=== PATIENT | female | born 1970 | race Caucasian/White ===

== ENCOUNTER 2021-01-11 16:57 | Outpatient (REF) | payer OTHER, SELFPAY ==
--- NOTE | ~2021-01-11 | MR_ITS ---
EXAMINATION: MR head/brain wo con CLINICAL INFORMATION: Reason for Exam Migraine without Aura self-reported right occipital pain with symptoms for 3 months. COMPARISON: None TECHNIQUE: Routine unenhanced MRI of the brain. FINDINGS: A mild number scattered subcortical and periventricular white matter rounded punctate (less than 5 mm) T2 hyperintensities are noted. No intrarenal hemorrhage, tumors or acute infarcts are demonstrated. The ventricles and sulci are normal in size and configuration. Susceptibility weighted images reveal no evidence of acute or chronic hemorrhage within the brain parenchyma. The craniocervical junction cerebellar tonsils are normal in configuration. No suspicious marrow abnormalities. Convex inward configuration of the superior margin of the pituitary is visualized no ectasia of the Meckel's caves is noted. No definitive optic nerve sheath ectasia is demonstrated. The inward configuration of the superior margin the pituitary likely represents normal anatomic variation, a frequently encountered finding. Normal flow-related signal intensity is identified in the major intracranial vessels and dural sinuses. No mastoid effusions. Bilateral maxillary sinus rounded T2 hyperintensities having the appearance of mucosal retention cyst. Sagittal FLAIR images reveal no perivenular lesions associated with the periventricular white matter. MR/MR head/brain wo con IMPRESSION: -Mild number scattered nonspecific supratentorial punctate white matter foci of signal alteration (T2 hyperintensities). In the correct clinical setting, these findings could represent mild white matter chronic small vessel ischemic changes. No findings to specifically suggest demyelinating disease. -Convex inward configuration of the superior margin the pituitary. In the correct clinical setting, this finding could be associated with idiopathic intracranial hypertension. No additional definitive findings are present to more specifically suggest intracranial hypertension. Consequently, this is a borderline finding which may represent frequently encountered normal anatomic variation of the pituitary.
== END 2021-01-11 16:58 | disposition home or self-care (01) ==
LOC: HO.MRI 16:57
PROVIDERS: Visit Provider Psychiatry & Neurology Neurology
DX: G43.009 Migraine without aura, not intractable, without status migrainosus (principal)
CPT/HCPCS: 70551

== ENCOUNTER 2021-01-25 09:31 | Day surgery (SDC) | payer OTHER, SELFPAY ==
[2021-01-24 16:19] VITALS: BMI 34.0
--- NOTE | ~2021-01-25 | FL_ITS ---
EXAMINATION: XR LUMBAR PUNCTURE CLINICAL INFORMATION: Chronic daily headache COMPARISON: MRI of January 11, 2021 TECHNIQUE: Fluoroscopic guided lumbar puncture. FINDINGS: Informed consent was obtained from the patient prior to the procedure. During this process, the procedure and potential alternatives were explained, along with the intended outcome and benefits. The risks of the procedure, as well as the risk of not doing the procedure, were discussed. The patient was given the opportunity to ask questions regarding the procedure and appeared competent to make medical decisions. A signed consent form which documents this discussion was placed in the medical record. Using fluoroscopic guidance and sterile technique a 22-gauge spinal needle was directed into the spinal canal at the L3-L4 level. Opening pressure was 16 cm of water. Total amount of cerebral spinal fluid drained was 7 mL. Patient tolerated procedure without difficulty. FLUOROSCOPY TIME: 1 minute DOSE AREA PRODUCT: 3.835 Gy-cm2 (malik-centimeter squared) FL/FL guided lumbar puncture LP IMPRESSION: L3-L4 lumbar puncture as described.
[2021-01-25 10:08] LABS: MANUAL DIFF FLAG NO
[2021-01-25 10:12] LABS: Basophils Absolute Auto 0.1 X10*3/uL (0.0-0.2); Basophils Percent Auto 0.5 % (0-2); Eosinophils Absolute Auto 0.2 X10*3/uL (0.0-0.4); Eosinophils Percent Auto 1.9 % (0-4); Hematocrit 43.1 % (37.0-47.0); Hemoglobin 14.3 g/dl (12.0-16.0); Imm Gran Abs Auto 0.05 X10*3/uL (0.00-0.03); Imm Gran Pct Auto 0.4 % (0.0-0.4); Lymphocytes Absolute Auto 4.2 X10*3/uL (1.2-4.9); Lymphocytes Percent Auto 32.5 % (20-40); Mean Corpuscular HGB Conc 33.2 g/dl (31.0-35.0); Mean Corpuscular Hemoglobin 30.8 pg (27.0-33.0); Mean Corpuscular Volume 92.7 fL (80.0-98.0); Mean Platelet Volume 12.4 fL (9.4-12.3); Monocytes Absolute Auto 0.9 X10*3/uL (0.1-1.2); Monocytes Percent Auto 6.7 % (2-11); Neutrophils Absolute Auto 7.4 x10*3/uL (2.0-8.3); Platelet Count 179 X10*3/uL (160-400); Red Blood Count 4.65 X10*6/uL (4.20-5.50); Red Cell Distribution Width 13.2 % (11.0-16.0); White Blood Count 12.8 X10*3/uL (4.8-10.8)
[2021-01-25 10:17] LABS: Glucose, Whole Blood 211 mg/dL (60-115)
[2021-01-25 10:26] VITALS: BP 140/81; PULSE 70; RESP 18; TEMP 36.2; O2SAT 96
[2021-01-25 10:26] LABS: Prothrombin Time 11.1 SEC (9.9-13.0)
[2021-01-25 10:29] LABS: Partial Thromboplastin Time 32.2 SEC (24.1-38.0)
[2021-01-25 13:10] VITALS: BP 123/67; PULSE 61; RESP 20; TEMP 36.8; O2SAT 95
[2021-01-25] MEDS: Acetaminophen 325 MG TABLET 650 MG PO (13:26)
[2021-01-25 13:41] VITALS: BP 116/65; PULSE 69; RESP 18; O2SAT 95
[2021-01-25 14:03] LABS: CSF Appearance Clear, Colorless; CSF Tube # 3
[2021-01-25 14:09] LABS: Glucose CSF 101 mg/dL; Total Protein CSF 28.5 mg/dL (15-45)
[2021-01-25 14:10] VITALS: BP 116/57; PULSE 70; RESP 16; O2SAT 94
[2021-01-25 14:40] VITALS: BP 116/63; PULSE 66; RESP 16; O2SAT 96
[2021-01-25 14:49] LABS: Appearance CSF CLEAR; CSF Monos 0 %; CSF Other Cells % 0 %; CSF Tube # 4; Color CSF COLORLESS; Lymphocytes CSF 0 %; Neutrophils CSF 0 %; Red Blood Cell CSF 641 MM*3; White Blood Cell CSF 0 MM*3
[2021-01-25 15:00] VITALS: TEMP 36.7
[2021-01-26 06:52] LABS: Oligoclonal Serum Yes
[2021-01-29 08:42] LABS: Albumin 3.9 g/dL (3.5-5.2); Albumin, CSF 15.7 mg/dL (8.0-42.0); IgG 932 mg/dL (600-1640)
== END 2021-01-25 15:20 | disposition home or self-care (01) ==
PROVIDERS: Radiology Diagnostic Radiology; PCP Internal Medicine; Visit Provider Psychiatry & Neurology Neurology
PROC: 009U3ZZ Drainage of Spinal Canal, Percutaneous Approach (ICD-10-PCS; CPT 62270; principal; 2021-01-25 11:00)
DX: R51.9 Headache, unspecified (principal); G43.909 Migraine, unspecified, not intractable, without status migrainosus; M54.81 Occipital neuralgia; I67.9 Cerebrovascular disease, unspecified; E03.9 Hypothyroidism, unspecified; F41.8 Other specified anxiety disorders; K21.9 Gastro-esophageal reflux disease without esophagitis; E11.9 Type 2 diabetes mellitus without complications; Z79.84 Long term (current) use of oral hypoglycemic drugs; Z79.82 Long term (current) use of aspirin; Z79.899 Other long term (current) drug therapy; Z88.8 Allergy status to other drugs, medicaments and biological substances
CPT/HCPCS: 36415; 62328; 82042; 82945; 82947; 83916; 84157; 85025; 85610; 85730; 87015; 87070; 87205; 89051

== ENCOUNTER 2022-10-30 13:35 | Outpatient (AMB) | payer OTHER, SELFPAY ==
--- NOTE | 2022-10-30 13:39 | MHC.OFFVIS ---
Intake Vital Signs 10/30/22 13:41 Weight 174 lb 2 oz BP 100/70 Blood Pressure Location Rt brachial Position Sitting Pulse 70 Pulse Source Pulse Oximeter Pulse Oximetry (%) 97 Intake Visit Reasons: ADOBE [employer]ER-Migraines -Confirmed Intake Note: Patient presents for migraines, Patient states My eyes get swollen and I'm sensitive to light I get very nauseous and sometimes I throw up. I constantly have a lot of neck pain. Allergies ibuprofen [From Motrin] Allergy (Mild, Verified 10/30/22 13:43) Rash Medication List - Last Reconciled 10/30/22 by ANTHONY Hyde amitriptyline 10 mg PO BEDTIME 30 days aspirin 81 mg PO DAILY atorvastatin 40 mg PO DAILY bbfrrqttyo-ptlnlwsoojnbf-wgaz 50-325-40 mg 1 - 2 tabs PO DAILY PRN docusate sodium (Colace) 100 mg PO BID PRN dulaglutide (Trulicity) 4.5 mg subcut QWEEK empagliflozin (Jardiance) 25 mg PO DAILY fluticasone propionate 50 mcg/actuation 2 sprays intranasal DAILY glipizide 5 mg PO BID isosorbide mononitrate ER 30 mg PO DAILY levothyroxine 200 mcg PO DAILY lisinopril 40 mg PO DAILY loratadine (Claritin) 10 mg PO DAILY PRN lorazepam 0.5 mg PO DAILY PRN magnesium oxide 400 mg PO BEDTIME 30 days mirtazapine 7.5 mg PO BEDTIME omeprazole 40 mg PO DAILY paroxetine HCl 40 mg PO DAILY propranolol 1 tab PO DAILY quetiapine 25 mg PO DAILY riboflavin (vitamin B2) 400 mg PO DAILY 30 days sumatriptan succinate 50 - 100 mg orally at onset of headache, may repeat in 2 hrs PRN; max 2 tabs per day or 4 tabs/week (may take with Advil or Tylenol) 30 days HPI HPI Comments History of Present Illness Details Left-handed 52-yr-old female presents for new pt evaluation of headache disorder. Pt reports she has had migraine for years, but it is more frequent and strong. She also has a right occipital region pain x's 2 years. The pain does not radiate. This is pounding pain. Constant but intensity varies. She has neck pain as well, worse when migraine is more severe. She has had occipital injections which helped x's 1 week but the pain returned. Headache questionnaire: Preceding causes? none Previous work-up? 01/11/2021, MR/MR head/brain wo con IMPRESSION: -Mild number scattered nonspecific supratentorial punctate white matter foci of signal alteration (T2 hyperintensities). In the correct clinical setting, these findings could represent mild white matter chronic small vessel ischemic changes. No findings to specifically suggest demyelinating disease. -Convex inward configuration of the superior margin the pituitary. In the correct clinical setting, this finding could be associated with idiopathic intracranial hypertension. No additional definitive findings are present to more specifically suggest intracranial hypertension. Consequently, this is a borderline finding which may represent frequently encountered normal anatomic variation of the pituitary. LP (01/25/21)- OP 16 cmH2O w/ normal CSF studies Typical migraine headache characteristics: Prodrome symptoms? denies Aura? Sees tiny black spots right before the headache Location, quality, characteristics? Bilateral fronatl/temporal, jaskaran R > L eye, and wraps around the head. Pulsating pain. The right occipital pain worsens when the migraine is present. Pain intensity? 10+/10 Associated symptoms? Photophobia, phonophobia, nausea, more recently vomiting, brain fog, mild dizziness, activity intolerance, Focal weakness, Parethesias, Autonomic s/s? jaskaran R > L eyelid droop/swelling, itching, watery. The head feels hot- new symptom. BP tends to increase- not sure exactly how high. Denies numbness/tingling. Postdrome? Denies Triggers? Nothing Any positional, valsalva, exertional, sexual activity triggers? None Menstrual triggers? None- s/p hysterectomy Time of day? More in the afternoon Duration? 3 severe days f/b 3-4 mod-mild days Frequency? 2 x's per month (approx 14 days per month) How does headache impact your life? She cannot do the things she would like to do- has to lay down in a dark/quiet place. Current acute medication use/interventions: Tylenol or Advil- does not help. Previous acute medication use: Fioricet- can be help. Current preventative medication use: Propranolol- used for HTN- does not help headaches Previous preventative medication use: No other Non-pharmacological interventions: Ice, rest Other history of headache disorder? none History of musculoskeletal disorders or injury? chronic neck and back spasms- but denies injury. Recently had right carpal tunnel repair. History of concussion/head injury? none History of mood disorder? anxiety and depression- her current regimen helps- f/b therapist and psychiatrist History of sleep disorder? sleeping well with her current med regimen. has a h/o ROHITH not on CPAP- did not tolerate PAP. History of respiratory disease? states she has asthma, sinus issues, and snoring- current smoker History of CV disease? HLD and HTN- controlled History of coagulopathy? none History of endocrine or metabolic disease? DM and hypothyroidism History of seizure? none History of GI disorder? Prone to constipation. Vision? mild difficulty w/ reading close, but not far, her last exam was 6 months ago- normal. Family planning? none Family history of migraine or other headache disorder? none [facility] Medical History (Updated 10/30/22 @ 20:01 by ANTHONY Hyde) Anxiety Constipation Depression Diabetes GERD (gastroesophageal reflux disease) HTN (hypertension) Hypothyroid Migraine Sleep apnea with use of continuous positive airway pressure (CPAP) Surgical History History of appendectomy History of carpal tunnel surgery of left wrist History of carpal tunnel surgery of right wrist History of colonoscopy Family History (Updated 10/30/22 @ 13:48 by ERIC Smith) Mother Heart disease HTN (hypertension) Father Heart disease Sister Asthma Daughter Asthma Social History (Updated 10/30/22 @ 13:49 by ERIC Smith) Alcohol intake: never Patient Tobacco Use Status: Current everyday Tobacco user Review of Systems Const Details: See scanned ROS form Physical Exam Vital Signs: Last Vital Signs Pulse 70 10/30/22 13:41 BP 100/70 10/30/22 13:41 Pulse Ox 97 10/30/22 13:41 Const Orientation/consciousness: patient oriented x3 HEENT Other: Mild palpable frontal scalp tenderness. Right occipital region- focal palpable tenderness. Mallampati stage IV Head: Yes normocephalic Resp Effort & Inspection: normal respiratory effort and able to speak in complete sentences Back/Spine/Pelvis Other: Bilateral posterior cervical tightness. Cervical ROM: mildly limited Left Spurling: normal Right Spurling: normal. Neuro General: patient oriented x3 Cranial nerves: Yes CN's II-XII intact bilaterally Cognition (Neuro): normal cognition Gait exam (Neuro): Normal gait present Motor exam (neuro): 5/5 motor strength present throughout Deep tendon reflexes (DTR's): Right triceps reflex intensity grade: 2+, Left triceps reflex intensity grade: 2+, Rt Biceps (C5, C6): 2+, Left biceps reflex intensity grade: 2+, Right brachioradialis reflex intensity grade: 2+, Left brachioradialis reflex intensity grade: 2+, Right patellar reflex intensity grade: 1+ and Left patellar reflex intensity grade: 1+ Coordination: [id number] test normal, tandem gait normal and Romberg test negative Pupils: Normal pupillary reactivity/response: bilateral Psych Appearance: grossly normal Mental Status: mental status grossly normal Speech and movement: Normal speech and movement present Affect: normal affect Attitude: cooperative Thought process: Normal thought process present Assessment & Plan Assessment & Plan (1) Migraine with aura: Code(s): G43.109 - Migraine with aura, not intractable, without status migrainosus (2) Unilateral occipital headache: Comment: right Code(s): R51.9 - Headache, unspecified Plan For overall headache management: Discussed importance of good self-care, including but not limited to maintaining a healthy diet, adequate fluid intake, adequate sleep, and engaging in regular physical activity. For headache triggers: Track headaches. Future considerations- f/u sleep study For acute headache treatment: Discussed importance of taking acute medications at the first sign of headache, however stressed importance of avoiding acute medication overuse (especially with medications such as Fioricet). Trial Sumatriptan 100mg tab, 1/2 - 1 tab (50-100mg) at onset of headache, may repeat in 2 hours. Max of 2 tabs (200mg) per 24 hours. May adjunct with OTC Tylenol 650mg q 4 hours, Ibuprofen 600mg q 6 hours, or Naproxen 440mg q 12 hrs prn. Reviewed potential adverse effects of triptans, including but not limited to nausea, fatigue, chest tightness/tingling (usually passes within a few minutes), medication overuse headaches. Previous acute migraine medication trials: Fioricet- can help. Acute migraine medication contraindications: None at this time For headache prevention medication: Discussed that preventative medications should be taken routinely as prescribed for best effect, it may take several weeks for full effect to take effect. Start Riboflavin 400mg qam Start Magnesium 400mg qhs Start Amitriptyline 10mg qhs. May stagger starting these Continue Propranolol- used for HTN- would not increase further d/t low normotensive BP Reviewed potential adverse effects of TCAs, including but not limited to fatigue, cardiac arrhythmias, mood changes. Previous migraine prevention medication trials: no other Migraine prevention medication contraindications: no other at this time Information also given on non-pharmacological interventions, such as migraine cooling caps. Pt to follow-up in 3 months or sooner prn. Medications: New amitriptyline 10 mg PO BEDTIME 30 days 30 tabs 3RF magnesium oxide may hold for loose stools 400 mg PO BEDTIME 30 days 30 tabs 6RF riboflavin (vitamin B2) 400 mg PO DAILY 30 days 30 tabs 6RF sumatriptan succinate (0.5 - 1 x 100 mg) 50 - 100 mg orally at onset of headache, may repeat in 2 hrs PRN; max 2 tabs per day or 4 tabs/week (may take with Advil or Tylenol) 30 days 12 tabs 6RF migraine headache Coding Level of Care Code New Pt Level 4 (61463) Diagnoses Migraine with aura G43.109 Unilateral occipital headache R51.9
[2022-10-30 13:41] VITALS: BP 100/70; PULSE 70; O2SAT 97
== END 2022-10-30 14:54 | disposition home or self-care (01) ==
PROVIDERS: Visit Provider Nurse Practitioner Family
DX: G43.109 Migraine with aura, not intractable, without status migrainosus (principal); R51.9 Headache, unspecified
CPT/HCPCS: 99204

== ENCOUNTER → 2022-10-30 13:35 | Outpatient (BNVA) | payer OTHER, SELFPAY | PROVIDERS: Visit Provider Nurse Practitioner Family | DX: G43.109 Migraine with aura, not intractable, without status migrainosus (principal); R51.9 Headache, unspecified | CPT/HCPCS: 99202 ==

== ENCOUNTER 2023-02-13 14:52 | Outpatient (AMB) | payer OTHER, SELFPAY ==
--- NOTE | 2023-02-13 15:21 | MHC.OFFVIS ---
Intake Vital Signs 02/13/23 15:28 BP 80/56 L Blood Pressure Location Rt brachial Position Sitting Pulse 70 Pulse Source Pulse Oximeter Pulse Oximetry (%) 100 Intake Visit Reasons: 3m follow up Migraines-Conf Intake Note: Patient presents for 3 month follow up migraines Allergies ibuprofen [From Motrin] Allergy (Mild, Verified 02/13/23 15:21) Rash Medication List - Last Reconciled 02/13/23 by ANTHONY Hyde amitriptyline 10 mg PO BEDTIME 30 days aspirin 81 mg PO DAILY atorvastatin 40 mg PO DAILY pwyearnnfs-rtbaamrxqkvcy-ibcl 50-325-40 mg 1 - 2 tabs PO DAILY PRN docusate sodium (Colace) 100 mg PO BID PRN dulaglutide (Trulicity) 4.5 mg subcut QWEEK empagliflozin (Jardiance) 25 mg PO DAILY fluticasone propionate 50 mcg/actuation 2 sprays intranasal DAILY glipizide 5 mg PO BID isosorbide mononitrate ER 30 mg PO DAILY levothyroxine 200 mcg PO DAILY lisinopril 40 mg PO DAILY loratadine (Claritin) 10 mg PO DAILY PRN lorazepam 0.5 mg PO DAILY PRN magnesium oxide 400 mg PO BEDTIME 30 days mirtazapine 7.5 mg PO BEDTIME omeprazole 40 mg PO DAILY paroxetine HCl 40 mg PO DAILY propranolol 1 tab PO DAILY quetiapine 25 mg PO DAILY riboflavin (vitamin B2) 400 mg PO DAILY 30 days sumatriptan succinate 50 - 100 mg orally at onset of headache, may repeat in 2 hrs PRN; max 2 tabs per day or 4 tabs/week (may take with Advil or Tylenol) 30 days HPI HPI Comments History of Present Illness Details 52-yr-old female presents for f/u visit. Pt denies any significant interval medical changes. Her BP is low at 80/56 today after recehck. She deneis lightheadedness, dizziness. She is compliant w/ her propranolol, lisinopril, and isosorbide- managed by PCP. She still has a near constant burning and stabbing pain in right occipital region, which are exacerbated when she has a migraine attack. She is having 2 mild right sided migraines per week, and 3 more severe right sided migraines 3 x's per month. The Amitriptyline has helped bothe headcahes some but does cause constipation and dry mouth. She does note that Gabapentin 300mg has been helpful in the past. [facility] Medical History (Updated 02/13/23 @ 17:14 by ANTHONY Hyde) Constipation Hypothyroid Depression Anxiety Migraine GERD (gastroesophageal reflux disease) Diabetes HTN (hypertension) Sleep apnea with use of continuous positive airway pressure (CPAP) Surgical History History of appendectomy History of carpal tunnel surgery of right wrist History of carpal tunnel surgery of left wrist History of colonoscopy Family History Mother Heart disease HTN (hypertension) Father Heart disease Sister Asthma Daughter Asthma Social History Alcohol intake: never Patient Tobacco Use Status: Current everyday Tobacco user Review of Systems Const All systems reviewed & are unremarkable except as noted in HPI and below Physical Exam Vital Signs: Last Vital Signs Pulse 70 02/13/23 15:28 BP 80/56 L 02/13/23 15:28 Pulse Ox 100 02/13/23 15:28 Const General: cooperative and no acute distress Orientation/consciousness: patient oriented x3 HEENT Head: Yes normocephalic Resp Effort & Inspection: normal respiratory effort and able to speak in complete sentences Neuro Other: Mild posterior cervical tightness, more so on left. Right occipital YAMIL distribution- palpation elicits electrical pain radiating superiorly. General: patient oriented x3, gait normal and CN's II-XI intact bilaterally Cognition (Neuro): normal cognition Motor exam (neuro): 5/5 motor strength present throughout Psych Appearance: grossly normal Mental Status: mental status grossly normal Speech and movement: Normal speech and movement present Affect: normal affect Attitude: cooperative Thought process: Normal thought process present Thought content: Normal thought content present Insight: Good insight present (Psych) Judgement: Good judgement present (Psych) Assessment & Plan Assessment & Plan (1) Migraine with aura: Code(s): G43.109 - Migraine with aura, not intractable, without status migrainosus (2) Unilateral occipital headache: Comment: right Code(s): R51.9 - Headache, unspecified Plan For low-BP- Pt advsied to decrease Lisinopril to 20mg qd- and check BP- order sent for home BP. Will reach out to PCP to ask them to f/u on this. For overall headache management: Track headaches. Future considerations- f/u sleep study ? For acute migraine headache treatment: Continue Sumatriptan 100mg tab- for the migraine. Previous acute migraine medication trials: Fioricet- can help. Acute migraine medication contraindications: None at this time ? For migraine headache prevention medication: Riboflavin 400mg qam Magnesium 400mg qhs Stop Amitriptyline 10mg qhs- not fully effective and would not increase d/t dry mouth and constipation. Start Aimovig 140mg sc q month. Continue Propranolol 20mg qd- used for HTN- would not increase further d/t low normotensive BP Reviewed potential adverse effects of TCAs, including but not limited to fatigue, cardiac arrhythmias, mood changes. Previous migraine prevention medication trials: no other Migraine prevention medication contraindications: no other at this time ? For right occipital headache: Trial Gabapentin 100-300mg qhs Will refer pt for pain amangement consult- to re-visit YAMIL block, trigger point injections, or other adjunctive tx options. ? Pt to follow-up in 3 months or sooner prn. Orders: Referrals Pain Management Referral R51.9 - Headache, unspecified Medications: New gabapentin 100 - 300 mg (1 - 3 x 100 mg) PO BEDTIME 30 days 90 caps 3RF erenumab-aooe (Aimovig Autoinjector) 140 mg subcut ONCE 30 days 1 mL 6RF blood pressure monitor (Blood Pressure Kit) Check BP twice a day 1 ea 0RF I10 - Essential (primary) hypertension blood pressure monitor (Blood Pressure Kit) Check BP twice a day 1 ea 0RF I10 - Essential (primary) hypertension Discontinued amitriptyline Discontinued Reason: Doctor's Order 10 mg PO BEDTIME 30 days 30 tabs 3RF Coding Level of Care Code Est Pt Level 4 (21518) Diagnoses Migraine with aura G43.109 Unilateral occipital headache R51.9
[2023-02-13 15:28] VITALS: BP 80/56; PULSE 70; O2SAT 100
== END 2023-02-13 16:03 | disposition home or self-care (01) ==
PROVIDERS: PCP Internal Medicine; Visit Provider Nurse Practitioner Family
DX: G43.109 Migraine with aura, not intractable, without status migrainosus (principal); R51.9 Headache, unspecified
CPT/HCPCS: 99214

== ENCOUNTER → 2023-02-13 14:52 | Outpatient (BNVA) | payer OTHER, SELFPAY | PROVIDERS: PCP Internal Medicine; Visit Provider Nurse Practitioner Family | DX: G43.109 Migraine with aura, not intractable, without status migrainosus (principal); R51.9 Headache, unspecified | CPT/HCPCS: 99212 ==

== ENCOUNTER → 2023-05-20 15:26 | Outpatient (BNVA) | payer OTHER, SELFPAY | PROVIDERS: PCP Internal Medicine; Visit Provider Nurse Practitioner Family ==

== ENCOUNTER 2023-08-29 10:02 | Outpatient (AMB) | payer OTHER, SELFPAY ==
--- NOTE | 2023-08-29 10:30 | A.OFFVIS_ITS ---
Vital Signs 08/29/23 10:31 Height 5 ft 1 in Weight 159 lb BMI 30.0 BP 110/70 Blood Pressure Location Rt brachial Position Sitting Pulse 77 Pulse Source Pulse Oximeter Pulse Oximetry (%) 97 Oxygen Delivery Method Room Air Intake Visit Reasons: Follow Up-LVM Intake Note: Patient presents for follow up. [employer] Required: Yes Manager [employer] Name: bita swanson Allergies ibuprofen [From Motrin] Allergy (Mild, Verified 08/29/23 10:34) Rash Medication List - Last Reconciled 08/29/23 by ANTHONY Hyde aspirin 81 mg PO DAILY atorvastatin 40 mg PO DAILY blood pressure monitor (Blood Pressure Kit) Check BP twice a day neummgdidk-lwjqlnqndyole-wzjq 50-325-40 mg 1 - 2 tabs PO DAILY PRN docusate sodium (Colace) 100 mg PO BID PRN dulaglutide (Trulicity) 4.5 mg subcut QWEEK empagliflozin (Jardiance) 25 mg PO DAILY fluticasone propionate 50 mcg/actuation 2 sprays intranasal DAILY gabapentin 100 - 300 mg (1 - 3 x 100 mg) PO BEDTIME 30 days galcanezumab-gnlm (Emgality Pen) 120 mg subcut ONCE 30 days galcanezumab-gnlm (Emgality Pen) 240 mg (2 mL) subcut ONCE 30 days glipizide 5 mg PO BID isosorbide mononitrate ER 30 mg PO DAILY levothyroxine 200 mcg PO DAILY lisinopril 40 mg PO DAILY loratadine (Claritin) 10 mg PO DAILY PRN lorazepam 0.5 mg PO DAILY PRN magnesium oxide 400 mg PO BEDTIME 30 days mirtazapine 7.5 mg PO BEDTIME omeprazole 40 mg PO DAILY paroxetine HCl 40 mg PO DAILY propranolol 1 tab PO DAILY quetiapine 25 mg PO DAILY riboflavin (vitamin B2) 400 mg PO DAILY 30 days sumatriptan succinate 50 - 100 mg orally at onset of headache, may repeat in 2 hrs PRN; max 2 tabs per day or 4 tabs/week (may take with Advil or Tylenol) 30 days HPI Comments Details: 52-yr-old female presents for f/u visit. 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 Patient reports migraines and stabbing pain were better on Aimovig. Unfortunately her insurance recently denied the Aimovig as they require trial of an alternate CGRP MaB. We have changed the order to Emgality, which insurance has approved, however pt has not received this from the [facility] yet. Pt is now overdue for her CGRP MaB injection and has noticed an increase in her headaches. [facility] Medical History (Updated 02/13/23 @ 17:14 by ANTHONY Hyde) Constipation Hypothyroid Depression Anxiety Migraine GERD (gastroesophageal reflux disease) Diabetes HTN (hypertension) Sleep apnea with use of continuous positive airway pressure (CPAP) Surgical History History of appendectomy History of carpal tunnel surgery of right wrist History of carpal tunnel surgery of left wrist History of colonoscopy Family History Mother Heart disease HTN (hypertension) Father Heart disease Sister Asthma Daughter Asthma Social History Alcohol intake: never Patient Tobacco Use Status: Current everyday Tobacco user Physical Exam Vital Signs: Last Vital Signs Pulse 77 08/29/23 10:31 BP 110/70 08/29/23 10:31 Pulse Ox 97 08/29/23 10:31 Oxygen Delivery Method Room Air 08/29/23 10:31 BMI result Body Mass Index 30.0 Const General: cooperative and no acute distress Orientation/consciousness: patient oriented x3 Resp Effort & Inspection: normal respiratory effort and able to speak in complete sentences Neuro General: patient oriented x3 Cranial nerves: Yes CN's II-XII intact bilaterally Cognition (Neuro): normal cognition Psych Appearance: grossly normal Mental Status: mental status grossly normal Speech and movement: Normal speech and movement present Affect: normal affect Attitude: cooperative Assessment & Plan Assessment & Plan (1) Migraine with aura: Code(s): G43.109 - Migraine with aura, not intractable, without status migrainosus Category: Medical (2) Unilateral occipital headache: Comment: right Code(s): R51.9 - Headache, unspecified Category: Medical Plan ? For overall headache management: Track headaches. Future considerations- f/u sleep study ? For acute migraine headache treatment: Continue Sumatriptan 100mg tab- for the migraine. Previous acute migraine medication trials: Fioricet- can help. Acute migraine medication contraindications: None at this time ? For migraine headache prevention medication: Riboflavin 400mg qam Magnesium 400mg qhs Stop Aimovig 140mg sc q month- was effective and well-tolerated but denied by insurance. Trial Emgality 240mg sc q month, then 120mg q month. Pt states she is familiar w/ the injection as she does take Trulicity. Order was resent to the pharmacy on 08/25, pt advised to contact her pharmacy- if there is an issue picking this up to let us know. Continue Propranolol 20mg qd- used for HTN- would not increase further d/t low normotensive BP. Previous migraine prevention medication trials: Amitriptyline 10mg qhs- not fully effective and caused dry mouth and constipation. Aimovig 140mg sc q month- was effective and well-tolerated but denied by insurance. Migraine prevention medication contraindications: no other at this time ? For right occipital headache: Continue Gabapentin 100-300mg qhs ? Pt to follow-up in 6 months or sooner prn. Medications: Refilled riboflavin (vitamin B2) 400 mg PO DAILY 30 days 30 tabs 6RF gabapentin 100 - 300 mg (1 - 3 x 100 mg) PO BEDTIME 30 days 90 caps 6RF sumatriptan succinate (0.5 - 1 x 100 mg) 50 - 100 mg orally at onset of headache, may repeat in 2 hrs PRN; max 2 tabs per day or 4 tabs/week (may take with Advil or Tylenol) 30 days 12 tabs 6RF migraine headache magnesium oxide may hold for loose stools 400 mg PO BEDTIME 30 days 30 tabs 6RF Coding Level of Care Code Est Pt Level 4 (27709) Diagnoses Migraine with aura G43.109 Unilateral occipital headache R51.9
[2023-08-29 10:31] VITALS: BP 110/70; PULSE 77; O2SAT 97
== END 2023-08-29 11:03 | disposition home or self-care (01) ==
PROVIDERS: PCP Internal Medicine; Visit Provider Nurse Practitioner Family
DX: G43.109 Migraine with aura, not intractable, without status migrainosus (principal); R51.9 Headache, unspecified
CPT/HCPCS: 99214

== ENCOUNTER → 2023-08-29 10:02 | Outpatient (BNVA) | payer OTHER, SELFPAY | PROVIDERS: PCP Internal Medicine; Visit Provider Nurse Practitioner Family | DX: G43.109 Migraine with aura, not intractable, without status migrainosus (principal) | CPT/HCPCS: 99212 ==

== ENCOUNTER 2024-03-29 10:58 | Outpatient (AMB) | payer OTHER, SELFPAY ==
[2024-03-29 11:07] VITALS: BP 106/68; PULSE 76; O2SAT 98; BMI 32.9
--- NOTE | 2024-03-29 11:07 | MHC.OFFVIS ---
Vital Signs 03/29/24 11:07 Height 5 ft 1 in Weight 174 lb 4 oz BMI 32.9 BP 106/68 Blood Pressure Location Rt brachial Position Sitting Pulse 76 Pulse Source Pulse Oximeter Pulse Oximetry (%) 98 Oxygen Delivery Method Room Air Intake Visit Reasons: 6 mnts f/u appt Intake Note: patient looking to restart. last dose was in November. Allergies ibuprofen [From Motrin] Allergy (Mild, Verified 03/29/24 11:11) Rash pneumococcal vaccine Allergy (Unknown, Verified 03/29/24 11:11) Unknown Medication List - Last Reconciled 03/29/24 by ANTHONY Hyde aspirin 81 mg PO DAILY atorvastatin 40 mg PO DAILY blood pressure monitor (Blood Pressure Kit) Check BP twice a day opkwrmyqcn-ejryylxckgyde-kfvy 50-325-40 mg 1 - 2 tabs PO DAILY PRN docusate sodium (Colace) 100 mg PO BID PRN dulaglutide (Trulicity) 4.5 mg subcut QWEEK empagliflozin (Jardiance) 25 mg PO DAILY fluticasone propionate 50 mcg/actuation 2 sprays intranasal DAILY gabapentin 100 - 300 mg (1 - 3 x 100 mg) PO BEDTIME 30 days galcanezumab-gnlm (Emgality Pen) 120 mg subcut ONCE 30 days galcanezumab-gnlm (Emgality Pen) 240 mg (2 mL) subcut ONCE 30 days glipizide 5 mg PO BID isosorbide mononitrate ER 30 mg PO DAILY levothyroxine 200 mcg PO DAILY loratadine (Claritin) 10 mg PO DAILY PRN lorazepam 0.5 mg PO DAILY PRN magnesium oxide 400 mg PO BEDTIME 30 days mirtazapine 7.5 mg PO BEDTIME omeprazole 40 mg PO DAILY paroxetine HCl 40 mg PO DAILY propranolol 1 tab PO DAILY quetiapine 25 mg PO DAILY riboflavin (vitamin B2) 400 mg PO DAILY 30 days sumatriptan succinate 50 - 100 mg orally at onset of headache, may repeat in 2 hrs PRN; max 2 tabs per day or 4 tabs/week (may take with Advil or Tylenol) 30 days HPI Comments Details: 52-yr-old female presents for f/u visit for migraine. Patient is accompanied by her daughter. Patient reports she switched to Emgality, and is tolerating it well, however she is 3 months overdue for her injection. On Emgality, she was having 2 migraine days per month. Prior to starting Emgality, she would have 5 high-grade days per month. Currently using Tyelnol and an ice pack, which helps some. She is not sure she tried sumatriptan before. Pt reports she has been having worsening of right occipital region burning pain, which is worse in the afternoon. States this was better when she was regularly taking Emgality, and intensity has increased since she has not had her Emgality recently. She can have neck pain and tightness. Gabapentin 100 mg p.o. b.i.d. helps some, but does make her sleepy. [facility] Medical History Constipation Hypothyroid Depression Anxiety Migraine GERD (gastroesophageal reflux disease) Diabetes HTN (hypertension) Sleep apnea with use of continuous positive airway pressure (CPAP) Surgical History History of appendectomy History of carpal tunnel surgery of right wrist History of carpal tunnel surgery of left wrist History of colonoscopy Family History Mother Heart disease HTN (hypertension) Father Heart disease Sister Asthma Daughter Asthma Social History Alcohol intake: never Patient Tobacco Use Status: Current everyday Tobacco user Physical Exam Vital Signs: Last Vital Signs Pulse 76 03/29/24 11:07 BP 106/68 03/29/24 11:07 Pulse Ox 98 03/29/24 11:07 Oxygen Delivery Method Room Air 03/29/24 11:07 BMI result Body Mass Index 32.9 Const General: cooperative and no acute distress Orientation/consciousness: patient oriented x3 Resp Effort & Inspection: normal respiratory effort and able to speak in complete sentences Neuro Other: Diffuse right occipital region tenderness to palpation. Mild forward head position. Bilateral posterior cervical tightness. Negative bilateral Spurling General: patient oriented x3 Cranial nerves: Yes CN's II-XII intact bilaterally Cognition (Neuro): normal cognition Psych Appearance: grossly normal Mental Status: mental status grossly normal Speech and movement: Normal speech and movement present Affect: normal affect Attitude: cooperative Assessment & Plan Assessment & Plan (1) Migraine with aura: Code(s): G43.109 - Migraine with aura, not intractable, without status migrainosus Category: Medical (2) Unilateral occipital headache: Comment: Suggestive of right occipital neuralgia Code(s): R51.9 - Headache, unspecified Category: Medical Plan ? For overall headache management: Track headaches. Future considerations- f/u sleep study ? For acute migraine headache treatment: Resume Sumatriptan 100mg tab- for the migraine. Previous acute migraine medication trials: Fioricet- can help. Acute migraine medication contraindications: None at this time ? For migraine headache prevention medication: Continue Riboflavin 400mg qam Continue Magnesium 400mg qhs Resume Emgality 120mg q month. Continue Propranolol 20mg qd- used for HTN- would not increase further d/t low normotensive BP. Previous migraine prevention medication trials: Amitriptyline 10mg qhs- not fully effective and caused dry mouth and constipation. Aimovig 140mg sc q month- was effective and well-tolerated but denied by insurance. Migraine prevention medication contraindications: no other at this time ? For right occipital headache: Check XR C-spine with flexion-extension Offered referral to pain management for possible right ON block, however patient would like to see results of x-ray 1st. Trial topical lidocaine to right occipital region 2-3 times per day p.r.n. Continue Gabapentin 100 mg b.i.d., may take 3rd dose p.r.n. ? Pt to follow-up in 6 months or sooner prn. Orders: Orders XR cervical spine w flex/ext Today M54.2 - Cervicalgia Medications: New lidocaine 5% 1 appl topical BID-TID 2 weeks PRN 35.44 grams 6RF right neck/head pain Changed From sumatriptan succinate (0.5 - 1 x 100 mg) 50 - 100 mg orally at onset of headache, may repeat in 2 hrs PRN; max 2 tabs per day or 4 tabs/week (may take with Advil or Tylenol) 30 days 12 tabs 6RF migraine headache To sumatriptan succinate (0.5 - 1 x 100 mg) 50 - 100 mg orally at onset of headache, may repeat in 2 hrs PRN; max 2 tabs per day or 4 tabs/week (may take with or Tylenol) 30 days 12 tabs 6RF migraine headache Refilled magnesium oxide may hold for loose stools 400 mg PO BEDTIME 30 days 30 tabs 6RF galcanezumab-gnlm (Emgality Pen) start 30 days after loading dose completed 120 mg subcut ONCE 30 days 1 mL 6RF G43.109 - Migraine with aura, not intractable, without status migrainosus gabapentin 100 - 300 mg (1 - 3 x 100 mg) PO BEDTIME 30 days 90 caps 6RF riboflavin (vitamin B2) 400 mg PO DAILY 30 days 30 tabs 11RF Discontinued galcanezumab-gnlm (Emgality Pen) Loading dose: 120 mg subcu injection x2 in alternate sites (total 240 mg). To be followed by maintenance dose of 120 mg subcu q.month. Discontinued Reason: Patient Completed Course 240 mg (2 mL) subcut ONCE 30 days 2 mL 0RF Coding Level of Care Code Est Pt Level 4 (74282) Diagnoses Migraine with aura G43.109 Unilateral occipital headache R51.9
== END 2024-03-29 12:01 | disposition home or self-care (01) ==
PROVIDERS: PCP Internal Medicine; Visit Provider Nurse Practitioner Family
DX: G43.109 Migraine with aura, not intractable, without status migrainosus (principal); R51.9 Headache, unspecified
CPT/HCPCS: 99214

== ENCOUNTER → 2024-03-29 10:58 | Outpatient (BNVA) | payer OTHER, SELFPAY | PROVIDERS: PCP Internal Medicine; Visit Provider Nurse Practitioner Family | DX: G43.109 Migraine with aura, not intractable, without status migrainosus (principal); M54.2 Cervicalgia | CPT/HCPCS: 99212 ==

== ENCOUNTER 2024-09-28 10:36 | Outpatient (AMB) | payer OTHER, SELFPAY ==
[2024-09-28 11:06] VITALS: BP 130/80; PULSE 72; O2SAT 96; BMI 33.1
--- NOTE | 2024-09-28 11:06 | HO.NEPHOV_ITS ---
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 Accompanied by: Self / Same As Patient Allergies ibuprofen (From Motrin) Allergy (Mild, Verified 09/28/24 11:09) Rash pneumococcal vaccine Allergy (Unknown, Verified 09/28/24 11:09) Unknown Medication List - Last Reconciled 09/28/24 by ANTHONY Hyde aspirin 81 mg PO DAILY atorvastatin 40 mg PO DAILY blood pressure monitor (Blood Pressure Kit) Check BP twice a day phnucblwxd-ramypemahviyk-ozbe 50-325-40 mg 1 - 2 tabs PO DAILY PRN docusate sodium (Colace) 100 mg PO BID PRN dulaglutide (Trulicity) 4.5 mg subcut QWEEK empagliflozin (Jardiance) 25 mg PO DAILY fluticasone propionate 50 mcg/actuation 2 sprays intranasal DAILY gabapentin 100 - 300 mg (1 - 3 x 100 mg) PO BEDTIME 30 days galcanezumab-gnlm (Emgality Pen) 120 mg subcut ONCE 30 days glipizide 5 mg PO BID isosorbide mononitrate ER 30 mg PO DAILY levothyroxine 300 mcg PO .weekly lidocaine 5% 1 appl topical BID-TID PRN 2 weeks loratadine (Claritin) 10 mg PO DAILY PRN lorazepam 0.5 mg PO DAILY PRN magnesium oxide 400 mg PO BEDTIME 30 days mirtazapine 7.5 mg PO BEDTIME omeprazole 40 mg PO DAILY paroxetine HCl 40 mg PO DAILY propranolol 1 tab PO DAILY quetiapine 25 mg PO DAILY riboflavin (vitamin B2) 400 mg PO DAILY 30 days sumatriptan succinate 50 - 100 mg orally at onset of headache, may repeat in 2 hrs PRN; max 2 tabs per day or 4 tabs/week (may take with or Tylenol) 30 days HPI Comments Details: 52-yr-old female presents for f/u visit for migraine. Patient reports she is doing better overall in temrs of her migraine and the right occipital burning pain since starting Emgality. On Emgality, she was having 2 migraine days per month, but not as strong as before. Prior to starting Emgality, she would have 5 high-grade days per month. Currently using Tylenol and an ice pack, which helps some. Tried sumatriptan, but she did not tolerate it. Mar 2024 XR C-spine- unremarkable. Gabapentin 100 mg p.o. b.i.d. as needed for neck pain and tightness, which helps some- not causing as much sleepiness. [facility] Medical History Constipation Hypothyroid Depression Anxiety Migraine GERD (gastroesophageal reflux disease) Diabetes HTN (hypertension) Sleep apnea with use of continuous positive airway pressure (CPAP) Surgical History History of appendectomy History of carpal tunnel surgery of right wrist History of carpal tunnel surgery of left wrist History of colonoscopy Family History Mother Heart disease HTN (hypertension) Father Heart disease Sister Asthma Daughter Asthma Social History Alcohol intake: never Patient Tobacco Use Status: Current everyday Tobacco user Physical Exam Vital Signs: Last Vital Signs Pulse 72 09/28/24 11:06 BP 130/80 09/28/24 11:06 Pulse Ox 96 09/28/24 11:06 Oxygen Delivery Method Room Air 09/28/24 11:06 BMI result Body Mass Index 33.1 Const General: cooperative and no acute distress Orientation/consciousness: patient oriented x3 Resp Effort & Inspection: normal respiratory effort and able to speak in complete sentences Neuro General: patient oriented x3 Cranial nerves: Yes CN's II-XII intact bilaterally Cognition (Neuro): normal cognition Psych Appearance: grossly normal Mental Status: mental status grossly normal Speech and movement: Normal speech and movement present Affect: normal affect Attitude: cooperative Results Reviewed Nephrology Results: Hgb, (12.0-16.0) 14.3 g/dl 01/25/21 WBC, (4.8-10.8) 12.8 X10*3/uL H 01/25/21 Plt Count, (160-400) 179 X10*3/uL 01/25/21 Assessment & Plan Assessment & Plan (1) Migraine with aura: Code(s): G43.109 - Migraine with aura, not intractable, without status migrainosus Category: Medical Qualifiers: Status migrainosus presence: without status migrainosus Intractability: not intractable Qualified Code(s): G43.109 - Migraine with aura, not intractable, without status migrainosus (2) Unilateral occipital headache: Comment: Suggestive of right occipital neuralgia Code(s): R51.9 - Headache, unspecified Category: Medical Plan ? For overall headache management: Track headaches. Future considerations- f/u sleep study ? For acute migraine headache treatment: Stop Sumatriptan 100mg tab- not tolerated. Trial Naratriptan 2.5mg tab, 1/2 - 1 tab (1.25-2.5mg) at onset of headache, may repeat in 4 hours. Max of 2 tabs (5mg) per 24 hours. May adjunct with OTC Tylenol 650mg every 4 hours, Ibuprofen (liquigel) 600mg every 6 hours, or Naproxen (liquigel) 440mg every 12 hrs as needed. Potential adverse effects of triptans, include but are not limited to nausea, fatigue, chest tightness/tingling (usually passes within a few minutes), medication overuse headaches. Previous acute migraine medication trials: Fioricet- can help. Acute migraine medication contraindications: Sumatriptan- not tolerated caused palpitations/paresthesias. ? For migraine headache prevention medication: Continue Riboflavin 400mg qam Continue Magnesium 400mg qhs Continue Emgality 120mg q month. Continue Propranolol 20mg qd- used for HTN- would not increase further d/t low normotensive BP. Previous migraine prevention medication trials: Amitriptyline 10mg qhs- not fully effective and caused dry mouth and constipation. Aimovig 140mg sc q month- was effective and well-tolerated but denied by insurance. Migraine prevention medication contraindications: no other at this time ? For right occipital headache: Check XR C-spine- unremarkable. Topical lidocaine to right occipital region 2-3 times per day p.r.n. Continue Gabapentin 100 mg b.i.d. prn. ? Pt to follow-up in 6 months or sooner prn. Medications: New naratriptan take 1/2 - 1 tab at onset of headache; if no relief may repeat 1 tab after at least 4 hrs; max = 2 tabs/24 hrs orally PRN; 12 tabs 6RF migraine headache 30 days Discontinued sumatriptan succinate Discontinued Reason: Doctor's Order (0.5 - 1 x 100 mg) 50 - 100 mg orally at onset of headache, may repeat in 2 hrs PRN; max 2 tabs per day or 4 tabs/week (may take with or Tylenol) 30 days 12 tabs 6RF migraine headache Coding Level of Care Code Est Pt Level 4 (59973) Diagnoses Migraine with aura and without status migrainosus, not intractable G43.109 Status migrainosus presence: without status migrainosus Intractability: not intractable Unilateral occipital headache R51.9
--- OUTSIDE RECORDS SUMMARY | 2024-09-28 11:47 | XMS_ITS | Clinical Summary ---
Author Organization [facility] Address [address] [place] [phone] Phone Care Team Providers Care Supervisor [employer] Name Role Phone Nely Cintron MD Primary Care Provider Allergies Active Allergy Reactions Criticality Noted Date Comments Bee Venom Protein (Honey Bee) 12/23/2023 Ibuprofen Medium 11/09/2014 Other Reaction(s): Rash/Dermatitis Other reaction(s): Rash, Itchiness Other Dermatitis,Rash 12/17/2023 Adhesive Tape Pneumococcal Vaccine 01/28/2018 Rash and difficulty breathing Medications flash glucose sensor (FreeStyle Dana 2 Sensor) kit USE 1 DEVICE BY DOES NOT APPLY ROUTE EVERY 14 DAYS. 09/18/19 24 Active aspirin 81 mg EC tablet Take 1 tablet (81 mg total) by mouth 1 (one) time each day. 10/01/19 24 Active traZODone (DESYREL) 50 mg tablet 01/18/20 23 Active SUMAtriptan (IMITREX) 100 mg tablet 02/15/20 23 Active LORazepam (ATIVAN) 0.5 mg tablet 02/07/20 23 Active pen needle, diabetic (COMFORT EZ PEN NEEDLES MISC) 11/22/19 23 Active fluticasone propionate (FLONASE) 50 mcg/actuation nasal spray INSTILL 2 SPRAYS BY NASAL ROUTE DAILY NEEDED FOR RHINITIS OR ALLERGIES. USE TWO SPRAYS IN EACH NOSTRIL ONCE DAILY 07/04/19 23 Active albuterol HFA (PROAIR HFA ; PROVENTIL HFA ; VENTOLIN HFA) 90 mcg/actuation inhaler Inhale 2 Puffs into the lungs every 6 hours as needed for Cough, Wheezing or Shortness of Breath. 10/06/19 22 Active blood sugar diagnostic (FreeStyle Lite Strips) test strip USE DIRECTED TO TEST 4 TIMES A DAY 08/10/19 22 Active galcanezumab-gnlm (Emgality Pen) 120 mg/mL injection pen ROSEMARY Active riboflavin (VITAMIN B2) 100 mg tablet Active atorvastatin (LIPITOR) 40 mg tablet Take 1 tablet (40 mg total) by mouth at bedtime. 28 tablet 04/08/19 25 Active lisinopriL (PRINIVIL,ZESTRIL ) 20 mg tabletIndications :Type 2 diabetes mellitus with neurological manifestations (CMS/HCC V24, CMS/HCC V28) TAKE 1 TABLET BY MOUTH EVERY DAY 30 tablet 1 03/15/19 25 Active hydroCHLOROthiazi de (MICROZIDE) 12.5 mg capsule Take 1 capsule (12.5 mg total) by mouth 1 (one) time each day. 28 capsule 04/08/19 25 Active PARoxetine (PAXIL) 10 mg tablet Take 1 tablet (10 mg total) by mouth 1 (one) time each day in the morning. 03/13/19 25 Active magnesium oxide (MAG-OX) 400 mg (241.3 elemental magnesium) tablet 03/13/19 25 Active omeprazole (PriLOSEC) [address] capsule Take 1 capsule (20 mg total) by mouth 1 (one) time each day before breakfast. Must wait at least 4 hours after taking Levothyroxine 28 capsule 1 07/07/19 25 Active dulaglutide (Trulicity) 4.5 mg/0.5 mL pen injector injectionIndicati ons:Type 2 diabetes mellitus with neurological manifestations (CMS/HCC V24, CMS/HCC V28) Inject 0.5 mL (4.5 mg total) under the skin every 7 (seven) days. 2 mL 5 07/16/19 25 Active empagliflozin (Jardiance) 25 mg tabletIndications :Type 2 diabetes mellitus with neurological manifestations (CMS/HCC V24, CMS/HCC V28) Take 1 tablet (25 mg total) by mouth 1 (one) time each day. 30 tablet 1 07/16/19 25 Active glipiZIDE (GLUCOTROL XL) 5 mg 24 hr tabletIndications :Type 2 diabetes mellitus with neurological manifestations (CMS/HCC V24, CMS/HCC V28) Take 1 tablet (5 mg total) by mouth 2 (two) times a day. 60 tablet 1 07/16/19 25 Active insulin lispro (HumaLOG KwikPen Insulin) 100 unit/mL injection pen Inject 3 times a day with meals per scale: 100-149: 10 unidades, 150-199: 11 unidades; 200-249: 12 unidades; 250-300: 13 unidades; 301-349: 14 unidades; 350-399: 15 unidades 15 mL 5 07/16/19 25 Active EpiPen 2-Sami 0.3 mg/0.3 mL injectionIndicati ons:Bee sting allergy Inject 0.3 mL (0.3 mg total) into the thigh 1 (one) time for 1 dose. 2 each 2 09/15/19 25 Active gabapentin (NEURONTIN) 100 mg capsule 09/03/19 25 Active PARoxetine (PAXIL) 40 mg tablet 09/02/19 25 Active Vitamin B-12 1,000 mcg tablet 09/02/19 25 Active metoprolol tartrate (LOPRESSOR) 25 mg tablet 09/02/19 25 Active levothyroxine (SYNTHROID, LEVOTHROID) 200 mcg tablet Take 1 tablet (200 mcg total) by mouth 1 (one) time each day before breakfast. Half a tablet on Friday 30 tablet 11 09/17/19 25 Active insulin glargine (Lantus Solostar U-100 Insulin) 100 unit/mL (3 mL) injection pen Inject 50 units at bedtime, suba por 4 unidades la doci, li la azucar esta mas pastor de 150. Max dose is 80 unidades 15 mL 5 09/17/19 25 Active gabapentin (NEURONTIN) 300 mg capsule Take 1 Capsule by mouth 2 times daily. [facility] 025 Discontin ued(Dupli alex order) amitriptyline (ELAVIL) 10 mg tablet 02/15/20 23 025 Discontin ued(Dupli alex order) FREESTYLE LANCETS MISC Use as dirested to check blood sugars 4 times daily 10/06/19 22 025 Discontin ued(Dupli alex order) EpiPen 2-Sami 0.3 mg/0.3 mL injection 11/11/19 24 025 Discontin ued(Reord er) medical supply, miscellaneous (MISCELLANEOUS MEDICAL SUPPLY MISC) Apply topically. Freestyle Dana 2 025 Discontin ued(Dupli alex order) levothyroxine (SYNTHROID, LEVOTHROID) 200 mcg tablet Take 1 tablet (200 mcg total) by mouth 1 (one) time each day before breakfast. Skip Friday 24 tablet 04/08/19 25 025 Discontin ued(Reord er) isosorbide mononitrate (IMDUR) 30 mg 24 hr tablet TAKE 1 TABLET BY MOUTH DAILY. 28 tablet 6 03/15/19 25 025 Discontin ued(Presc riber Discontin ued) insulin glargine (Lantus Solostar U-100 Insulin) 100 unit/mL (3 mL) injection pen Inject 46 units at bedtime, suba por 4 unidades la doci, li la azucar esta mas pastor de 150. Max dose is 80 unidades 15 mL 5 07/16/19 25 025 Discontin ued(Reord er) Active Problems Problem Noted Date Diagnosed Date Acquired hypothyroidism 12/17/2023 Hyperlipidemia 12/17/2023 Hypertension 12/17/2023 Migraines 12/17/2023 Trigger ring finger of right hand 08/23/2022 Hyperplastic polyp of large intestine 03/21/2021 Overview (12/17/2023): size is 0.6cm Urolithiasis 03/21/2021 Allergic rhinitis 03/08/2021 ROHITH (obstructive sleep apnea) 03/08/2021 Thyroid nodule 01/17/2017 GERD (gastroesophageal reflux disease) 6 Globus sensation 02/22/2016 Chronic back pain 12/14/2015 CAD (coronary artery disease) 10/13/2015 Overview (04/22/2024): -Cardiac cath on 04/26/2014 performed for an abnormal nuclear stress test showing a large area of anterior ischemia, it revealed minor luminal irregularities of the left main, left circumflex, RCA, and ramus, 55% mid LAD lesion that was FFR negative Atypical chest pain 09/19/2014 Overview (04/22/2024): -Ultimately, this has been felt to be related to peptic ulcer disease/gastroesophageal reflux disease Anxiety and depression 12/30/2013 Overview (12/17/2023): Chronic. farson psych, followed by Dr. Alvarez/psychiatrist Diabetes mellitus type 2 wit h neurological manifestations ([facility]/HCC V24, [facility]/HCC V28) 12/30/2013 Fatty liver 12/30/2013 Right carpal tunnel syndrome 12/30/2013 Overview (12/17/2023): Bilateral moderate/EMG 08/10/13 [place] [facility] Obesity (BMI 30.0-34.9) 12/30/2013 Resolved Problems Problem Noted Date Diagnosed Date Resolved Date Type 2 diabetes mellitus (CM S/HCC V24, CMS/HCC V28) 04/22/2024 05/10/2024 Encounters Date Type Department Care Team Description 09/14/2024 3:15 PM EDT Office Visit Adult Medicine [facility] - [address] [phone] Vijaya Locke PA Diabetes mellitus type 2 with neurological manifestations (CMS/HCC V24, CMS/HCC V28) (Primary Dx); Refused pneumococcal vaccine; Bee sting allergy; ROHITH (obstructive sleep apnea); Obesity (BMI 30.0-34.9); Primary hypertension; Mixed hyperlipidemia; Coronary artery disease involving [place] coronary artery of [place] heart without angina pectoris; Acquired hypothyroidism 09/02/2024 Telephone [facility] [address] [facility] [address] [place] [address] Kiki Nava MA Med Refill (Imdur dc'd ) 07/15/2024 2:30 PM EDT Office Visit Endocrinology - [address] [phone] Nakia Mane PA Type 2 diabetes mellitus with neurological manifestations (CMS/HCC V24, CMS/HCC V28) (Primary Dx); Secondary hypertension; Other hyperlipidemia; Acquired hypothyroidism from Last 3 Months Immunizations Name Administration Dates Next Due Influenza Quadravalent, MDCK , 0.5ml, preservative free (Flucelvax) 6mo and older 12/20/2022,04/17/2022,03/01/2021 Influenza trivalent, MDCK, 0 .5mL, preservative free (Flucelvax) 6mo and older 05/10/2024 Influenza trivalent, with pr eservative (Fluzone; Afluria) 6mo and older 04/08/2016,11/21/2014,12/16/2013 Influenza, Unspecified 12/22/2016 PPD Test 11/21/2014 Pneumococcal polysaccharide 23 valent (Pneumovax 23) 2yo and older 01/17/2017 Tdap Tetanus diptheria acell ular pertussis (Boostrix; Adacel) 7yo and older 08/19/2022,06/01/2012 Zoster recombinant (Shingrix ) 19yo and older 08/13/2021 Surgical History Surgery Date Site/Laterality Comments APPENDECTOMY SECTION COLONOSCOPY 01/28/2014 - anal canal polyp - squamous papilloma, negative for dysplasia. COLONOSCOPY 03/10/2011 for evaluation of hemorrhoids ESOPHAGOGASTRODUODENOSCOPY 01/08/2015 CARPAL TUNNEL RELEASE 10/03/2015 HEMORRHOID SURGERY 03/10/2011 COLONOSCOPY 02/2021 HYSTERECTOMY Medical History Medical History Date Comments Hypertension Hyperlipidemia Migraines Severe obesity ([facility] V24, [facility] V28) 12/30/2013 : BMI 37.24 on 12/21/13 Diabetes mellitus type 2 wit h neurological manifestations ([facility] V24, [facility] V28) 12/30/2013 Carpal tunnel syndrome 12/30/2013 Bilateral /EMG 08/10/13 [place] [facility] History of kidney stones 12/30/2013 Seen on thoracic MRI 2012 right ureter Fatty liver 12/30/2013 Acid reflux, elliot ng followed by structures assembler at [facility] Dr. Hadry ROHITH (obstructive sleep apnea) Nacho gaitan does not remember name of sleep medicine specialist, referred to pulmonary/sleep medicine at [place] History of colonoscopy 10/2016 : int and ext hemorhoids;. repeat in 1 yr History of endoscopy 05/28/2017 [facility] [place], [place] History of colonoscopy 08/2017 repeat 10 yr History of shingles GERD (gastroesophageal reflu x disease) 02/22/2016 Allergic rhinitis 03/08/2021 Coronary artery disease invo lving [place] coronary artery of [place] heart without angina pectoris 10/13/2015 Chronic back pain 12/14/2015 Globus sensation 02/22/2016 Family History Medical History Relation Name Comments Breast cancer Aunt maternal 52 maternal Other: heart disease Father d No Known Problems Maternal Grandfather No Known Problems Maternal Grandmother Glaucoma Mother CAD No Known Problems Paternal Grandfather No Known Problems Paternal Grandmother Ovarian cancer Neg Hx Uterine cancer Neg Hx Relation Name Status Comments Aunt maternal 52 Father Maternal Grandfather Maternal Grandmother Mother Paternal Grandfather Paternal Grandmother Social History Tobacco Use Types Packs/Day Years Used Date Smoking Tobacco: Every Day Cigarettes 0.1 40.6 Started: 03/10/1984 Smokeless Tobacco: Never Tobacco Cessation:Ready to Q uit: Not Asked; Counseling Given: Not Answered Alcohol Use Standard Drinks/Week Comments No 0 (1 standard drink = 0.6 oz pur e alcohol) Comments No Sex and Gender Information Value Date Recorded Sex Assigned at Not on file Legal Sex Female 5:20 AM EST Gender Identity Not on file Sexual Orientation Not on file Obstetrics History Last Filed Vital Signs Vital Sign Reading Time Taken Comments Blood Pressure 90/60 09/14/2024 3:04 PM EDT Pulse 80 09/14/2024 3:04 PM EDT Temperature 36.2 C (97.1 F) 09/14/2024 3:04 PM EDT Respiratory Rate 14 09/14/2024 3:04 PM EDT Oxygen Saturation 96% 09/14/2024 3:04 PM EDT Inhaled Oxygen Concentration - - Weight 79.4 kg (175 lb) 09/14/2024 3:04 PM EDT Height 154.9 cm (5' 1 ) 09/14/2024 3:04 PM EDT Body Mass Index 33.07 09/14/2024 3:04 PM EDT Plan of Treatment Upcoming Encounters Date Type Department Care Team (Late st Contact Info) Description 10/08/2024 11:15 AM EDT Office Visit Orthopedic Surgery - [place] [address] [place] [phone] aSdaf Chahal PA [address] [place] [address] 10/15/2024 2:30 PM EDT Office Visit Endocrinology [address] [phone] Nakia Mane PA [address] [place] [address] 01/17/2025 1:15 PM EST Office Visit Adult Medicine [address] [phone] Nely Cintron MD [address] [place], [place] Health Maintenance Due Date Last Done Comments Diabetes: Annual Foot Exam 1980 Diabetes: Annual Retina Eye Exam 1980 Hepatitis B Vaccines (1 of 3 - 19+ 3-dose series) 1989 Pneumococcal Vaccine: 50+ Years (2 of 2 - PCV) 01/17/2018 01/17/2017 Zoster Vaccines (2 of 2) 10/08/2021 08/13/2021 Social Influencers of Health Screening 02/16/2022 COVID-19 Vaccine ( season) 2023 10/04/2021, 12/16/2020, 11/25/2020 Depression Screening 03/10/2024 12/20/2022 Influenza Vaccine (#1) 2024 , 12/20/2022, 04/17/2022, Additional history exists Diabetes: Blood Sugar Control Test (HGBA1C) 03/17/2025 09/14/2024, 04/20/2024, 12/23/2023, Additional history exists Diabetes: Annual Urine Albumin-Creatinine Ratio (uACR) 05/10/2025 05/10/2024, 08/23/2022 Diabetes: Annual GFR (Glomerular Filtration Rate) 05/10/2025 05/10/2024, 12/23/2023, 05/09/2023 Hypertension/CHF/CAD Annual BMP Blood Test 05/10/2025 05/10/2024, 12/23/2023, 05/09/2023 Breast Cancer Screening 08/24/2025 08/25/19 24, 08/25/2023, 08/17/2022, Additional history exists Cholesterol Screening (Lipid Panel) 05/10/2029 05/10/2024, 05/09/2023 Colorectal Cancer Screening: Colonoscopy 03/06/2031 03/06/2021 DTaP,Tdap,and Td Vaccines (3 - Td or Tdap) 08/19/2032 08/19/2022, 06/01/2012 HIV Screening Completed 11/21/2014 Hepatitis C Screening Completed 11/21/2014 HIB Vaccines Aged Out No longer eligi ble based on patient's age to complete this topic HPV Vaccines Aged Out No longer eligi ble based on patient's age to complete this topic Hepatitis A Vaccines Aged Out No long er eligible based on patient's age to complete this topic IPV Vaccines Aged Out No longer eligi ble based on patient's age to complete this topic MMR Vaccines Aged Out No longer eligi ble based on patient's age to complete this topic Meningococcal ACWY Vaccine Aged Out N o longer eligible based on patient's age to complete this topic Meningococcal B Vaccine Aged Out No l onger eligible based on patient's age to complete this topic RSV Immunization Patients Under 20 months Aged Out No longer eligible based on patient's age to complete this topic Varicella Vaccines Aged Out No longer eligible based on patient's age to complete this topic Procedures Procedure Name Priority Date/Time Associated Diagnosis Comments TRIIODOTHYRONINE FREE Routine 09/14/2024 3:55 PM EDT Type 2 diabetes mellitus with neurological manifestations (CMS/HCC V24, CMS/HCC V28) FREE THYROXINE WITH REFLEX TO FREE TRIIODOTHYRONINE Routine 09/14/2024 3:55 PM EDT Type 2 diabetes mellitus with neurological manifestations (CMS/HCC V24, CMS/HCC V28) HEMOGLOBIN A1C Routine 09/14/2024 3:55 PM EDT Type 2 diabetes mellitus with neurological manifestations (CMS/HCC V24, CMS/HCC V28) THYROID STIMULATING HORMONE WITH REFLEX TO FREE T4 AND FREE T3 Routine 09/14/2024 3:55 PM EDT Type 2 diabetes mellitus with neurological manifestations (CMS/HCC V24, CMS/HCC V28) MICROALBUMIN CREATININE URINE RATIO Routine 05/10/2024 3:51 PM EST Diabetes mellitus type 2 with neurological manifestations (CMS/HCC V24, CMS/HCC V28) BASIC METABOLIC PANEL Routine 05/10/2024 3:51 PM EST Diabetes mellitus type 2 with neurological manifestations (CMS/HCC V24, CMS/HCC V28) LIPID PANEL WITH REFLEX TO DIRECT LDL Routine 05/10/2024 3:51 PM EST Other hyperlipidemia SCREENING MAMMOGRAPHY BI 2-VIEW BREAST INC CAD Routine 08/25/2023 3:09 PM EDT Encounter for screening mammogram for malignant neoplasm of breast DEPRESSION SCREENING Routine 12/20/2022 COLONOSCOPY Routine 03/06/2021 HEPATITIS C SCREENING Routine 11/21/2014 HIV SCREENING Routine 11/21/2014 from Last 3 Months or Most Recently Relevant to Health Maintenance Results * (ABNORMAL) Thyroid stimulating hormone with reflex to free t4 and free t3 (09/14/2024 3:55 PM EDT) TSH 9.17(H) 0.40 - 4.00 mcIU/mL LAB CHEMISTRY METHOD 09/14/2024 6:36 PM EDT [facility] Blood Venous blood specimen / Unknown Venipuncture / Unknown 09/14/2024 3:55 PM EDT 09/14/2024 3:55 PM EDT us Nakia WOODS LAB BLOOD ORDERABLES Final Result [facility] [address] [place] [address], [place] [phone] * Free thyroxine with reflex to free triiodothyronine (09/14/2024 3:55 PM EDT) Pathologist [facility] Free T4 1.07 0.70 - 1.80 ng/dL LAB CHEMISTRY METHOD 09/14/2024 8:16 PM EDT [facility] Blood Venous blood specimen / Unknown Venipuncture / Unknown 09/14/2024 3:55 PM EDT 09/14/2024 3:55 PM EDT Nakia WOODS LAB BLOOD ORDERABLES Final Result [facility] [address] [place] [address], [place] [phone] * Triiodothyronine free (09/14/2024 3:55 PM EDT) Pathologist [facility] T3, Free 241 230 - 420 pcg/dL LAB CHEMISTRY METHOD 09/14/2024 9:29 PM EDT [facility] Blood Venous blood specimen / Unknown Venipuncture / Unknown 09/14/2024 3:55 PM EDT 09/14/2024 3:55 PM EDT Nakia WOODS LAB BLOOD ORDERABLES Final Result [facility] [address] [place] [address], [place] [phone] * (ABNORMAL) Hemoglobin A1c (09/14/2024 3:55 PM EDT) [facility] Hemoglobin A1C 9.5(H) <6.5 % LAB CHEMISTRY METHOD 09/14/2024 10:17 PM EDT [facility] Mean Bld Glu Estim. 226 mg/dL LAB CHEMISTRY METHOD 09/14/2024 10:17 PM EDT [facility] Blood Venous blood specimen / Unknown Venipuncture / Unknown 09/14/2024 3:55 PM EDT 09/14/2024 3:55 PM EDT us Nakia WOODS LAB BLOOD ORDERABLES Final Result Performing Organization Address City/[facility]/ZIP Co de Phone Number [facility] [address] [place] [address], [place] [phone] * (ABNORMAL) Lipid panel with reflex to direct LDL (05/10/2024 3:51 PM EST) [facility] Cholesterol 174 0 - 200 mg/dL LAB CHEMISTRY METHOD 05/10/2024 7:33 PM EST [facility] Triglycerides 310(H) 0 - 150 mg/dL LAB CHEMISTRY METHOD 05/10/2024 7:33 PM EST [facility] HDL 30(L) >=40 mg/dL LAB CHEMISTRY METHOD 05/10/2024 7:33 PM EST [facility] LDL Calculated 82 0 - 100 mg/dL LAB CHEMISTRY METHOD 05/10/2024 7:33 PM EST [facility] VLDL Cholesterol Al 62 mg/dL LAB CHEMISTRY METHOD 05/10/2024 7:33 PM EST [facility] Non HDL Chol. (LDL+VLDL) 144 <145 mg/dL LAB CHEMISTRY METHOD 05/10/2024 7:33 PM EST [facility] Chol/HDL Ratio 5.8(H) 0.0 - 4.4 LAB CHEMISTRY METHOD 05/10/2024 7:33 PM EST [facility] Blood Venous blood specimen / Unknown Venipuncture / Unknown 05/10/2024 3:51 PM EST 05/10/2024 3:51 PM EST us Nely Cintron MD LAB BLOOD ORDERABLES Final Resul t Performing Organization Address City/[facility]/ZIP Co de Phone Number [facility] [address] [place] [address], [place] [phone] * (ABNORMAL) Microalbumin creatinine urine ratio (05/10/2024 3:51 PM EST) Creatinine, Urine 39.0 mg/dL LAB CHEMISTRY METHOD 05/10/2024 7:55 PM [facility] Microalb, Ur 14.9 0.0 - 29.0 mg/L LAB CHEMISTRY METHOD 05/10/2024 7:55 PM [facility] Microalb/Creat Ratio 38(H) <30 mg/g creat LAB CHEMISTRY METHOD 05/10/2024 7:55 PM [facility] Urine Urine specimen obtained by clean catch procedure / Unknown Non-blood Collection / Unknown 05/10/2024 3:51 PM EST 05/10/2024 3:51 PM EST Nely Cintron MD LAB URINE ORDERABLES Final Resul t [facility] [address] [place] [address], * (ABNORMAL) Basic metabolic panel (05/10/2024 3:51 PM EST) Pathologist [facility] Sodium 136 133 - 145 mmol/L LAB CHEMISTRY METHOD 05/10/2024 7:32 PM [facility] Potassium 3.7 3.5 - 5.5 mmol/L LAB CHEMISTRY METHOD 05/10/2024 7:32 PM [facility] Chloride 99 96 - 110 mmol/L LAB CHEMISTRY METHOD 05/10/2024 7:32 PM [facility] CO2 26 21 - 32 mmol/L LAB CHEMISTRY METHOD 05/10/2024 7:32 PM [facility] Anion Gap 11 3 - 11 LAB CHEMISTRY METHOD 05/10/2024 7:32 PM [facility] Glucose 131(H) 70 - 100 mg/dL LAB CHEMISTRY METHOD 05/10/2024 7:32 PM EST [facility] BUN 13 5 - 25 mg/dL LAB CHEMISTRY METHOD 05/10/2024 7:32 PM EST [facility] Creatinine 0.70 0.50 - 1.10 mg/dL LAB CHEMISTRY METHOD 05/10/2024 7:32 PM [facility] eGFR 104 >=60 mL/min/1. 73m2 LAB CHEMISTRY METHOD 05/10/2024 7:32 PM EST [facility] Comment:Calculation based on the Chronic Kidney Disease Epidemiology Collaboration (CKD-EPI) equation refit without adjustment for race. BUN/Creatinine Ratio 18.6 LAB CHEMISTRY METHOD 05/10/2024 7:32 PM [facility] Calcium 9.9 8.5 - 10.5 mg/dL LAB CHEMISTRY METHOD 05/10/2024 7:32 PM [facility] Blood Venous blood specimen / Unknown Venipuncture / Unknown 05/10/2024 3:51 PM EST 05/10/2024 3:51 PM EST us Nely Cintron MD LAB BLOOD ORDERABLES Final Resul t [facility] [address] [place] [address], * SCREENING MAMMOGRAPHY BI 2-VIEW BREAST INC CAD (08/25/2023 3:09 PM EDT) Anatomical Region Laterality Modality Radiographic Qi ging 08/17/2022 12:4 0 PM EDT Narrative 08/26/2023 11:21 AM EDT This is a summary report. The complete report is available in the patient's medical record. If you cannot access the medical record, please contact the sending organization for a detailed fax or copy. Study: SCREENING MAMMOGRAPHY BI 2-VIEW BREAST INC CAD Technique: Bilateral full-field digital screening mammography is obtained and read in conjunction with computer aided detection. Tomosynthesis as well as 2D C-View imaging were obtained. Comparison: Comparison made to multiple priors, most recent August 17, 2022, and most remote September 05, 2014. Breast composition: There are scattered areas of fibroglandular density. Bilateral breasts: No significant masses, suspicious calcifications or other abnormalities are seen in either breast. IMPRESSION: Impression: Bilateral breasts: Negative, no specific mammographic evidence of malignancy. Normal interval follow-up is recommended in 12 months. BI-RADS: Category 1: Negative Procedure Note Kristal Pollard MD - 12/24/2023 This is a summary report. The complete report is available in thepatient's medical record. If you cannot access the medical record, pleasecontact the sending organization for a detailed fax or copy. Study: SCREENING MAMMOGRAPHY BI 2-VIEW BREAST INC CAD Technique: Bilateral full-field digital screening mammography is obtainedand read in conjunction with computer aided detection. Tomosynthesis aswell as 2D C-View imaging were obtained. Comparison: Comparison made to multiple priors, most recent August 17, 2022,and most remote September 05, 2014. Breast composition: There are scattered areas of fibroglandular density. Bilateral breasts: No significant masses, suspicious calcifications orother abnormalities are seen in either breast. IMPRESSION: Impression: Bilateral breasts: Negative, no specific mammographic evidence ofmalignancy. Normal interval follow-up is recommended in 12 months. BI-RADS: Category 1: Negative Result [facility] Nely Cintron MD IMG XR PROCEDURES Final Result * Depression Screening (12/20/2022) [facility] Depression Screening abstracted Result [facility] Provider HEALTH MAINTENANCE Final Result * Colonoscopy (03/06/2021) [facility] Colonoscopy no interpretation , abstracted Anatomical Region Laterality Modality Other Result [facility] Provider HEALTH MAINTENANCE Final Result * HIV Screening (11/21/2014) [facility] HIV Screening abstracted Result [facility] Provider HEALTH MAINTENANCE Final Result * Hepatitis C Screening (11/21/2014) [facility] Hepatitis C Screening abstracted us Historical Provider HEALTH MAINTENANCE Final Result from Last 3 Months or Most Recently Relevant to Health Maintenance Insurance [facility] Care Teams Supervisor [employer] Anne[employer] Relationship Specialty Start Date End Date Nely Cintron MD [address] [place] [address] PCP - General Internal Medicine 12/22/20
== END 2024-09-28 11:38 | disposition home or self-care (01) ==
LOC: HO.HSMS 10:36
PROVIDERS: PCP Internal Medicine; Visit Provider Nurse Practitioner Family
DX: G43.109 Migraine with aura, not intractable, without status migrainosus (principal); R51.9 Headache, unspecified
CPT/HCPCS: 99214

== ENCOUNTER → 2024-09-28 10:36 | Outpatient (BNVA) | payer OTHER, SELFPAY | PROVIDERS: PCP Internal Medicine; Visit Provider Nurse Practitioner Family | DX: G43.109 Migraine with aura, not intractable, without status migrainosus (principal) | CPT/HCPCS: 99212 ==